=== PATIENT | female | born 1990 | race Two or more races ===

== ENCOUNTER 2016-11-24 04:30 | Emergency (ER) | payer OTHER ==
[~2016-11-24] VITALS: Ht 162.6 cm; Wt 114.3 kg
[2016-11-24] MEDS ORDERED: AMOX500C PO (04:42)
[2016-11-24] MEDS ORDERED: IBUP-1007 PO (04:42)
--- NOTE | 2016-11-24 04:42 | PHYS DOC ---
Adult General Chief Complaint Chief Complaint: SORE THROAT HPI HPI Patient is a 26 year old female who presents to the ER today complaining of a sore throat 1 day. Patient reports she's had some tactile fevers at home. Patient playing ear pain and redness from her left eye. Patient denies any other symptomatology. Patient has any nausea vomiting diarrhea cough cold runny nose. Patient reports she is tolerating by mouth's well. Patient has any altered mentation. Patient's physical exam was significant for bilateral tender submandibular lymphadenopathy. Patient has exudates in her right tonsil. Patient has no trismus. Patient is no stridor. Patient is no evidence of a workup minus. Constitutional: Denies fever or chills [] Eyes: Denies change in visual acuity, redness, or eye pain [] All other review systems are negative except as documented in the history of present illness portion. Constitutional: Well developed, well nourished, no acute distress, non-toxic appearance. [] HENT: Normocephalic, atraumatic, bilateral external ears normal, oropharynx moist, no oral exudates, nose normal. [] Eyes: PERRLA, EOMI, conjunctiva normal, no discharge. [] Neck: Normal range of motion, no tenderness, supple, no stridor. [] Cardiovascular:Heart rate regular rhythm, Lungs & Thorax: Bilateral breath sounds clear to auscultation [] Abdomen: Bowel sounds normal, soft, no tenderness, no masses, no pulsatile masses. [] Skin: Warm, dry, no erythema, no rash. [] Back: No tenderness, no CVA tenderness. [] Extremities: No tenderness, no cyanosis, no clubbing, ROM intact, no edema. [] Neurologic: Alert and oriented X 3, normal motor function, normal sensory function, no focal deficits noted. [] Psychologic: Affect normal, judgement normal, mood normal. [] Assessment and plan This is a 26-year-old female who presents here today was strep pharyngitis. Patient was discharged home on amoxicillin and Motrin. Patient's clinically hemodynamically stable. Precautions were reviewed with the patient. Current Medications Current Medications Current Medications Medications (Trade) Dose Ordered Sig/Hilary Start Time Stop Time Status Last Admin Dose Admin Amoxicillin (Amoxil) 500 mg 1X ONCE 11/24/16 04:45 11/24/16 04:46 UNV Ibuprofen (Motrin) 600 mg 1X ONCE 11/24/16 05:00 11/24/16 05:01 UNV Allergies Allergies Allergies Coded Allergies Type Severity Reaction Last Updated Verified No Known Drug Allergies 11/24/16 No Current Patient Data Vital Signs Vital Signs Date Time Temp Pulse Resp B/P (MAP) Pulse Ox O2 Delivery O2 Flow Rate FiO2 11/24/16 04:45 98.2 74 20 99 Room Air 98.2 EKG EKG [] Radiology/Procedures Radiology/Procedures [] Course & Med Decision Making Course & Med Decision Making Pertinent Labs and Imaging studies reviewed. (See chart for details) [] Dragon Disclaimer Dragon Disclaimer This electronic medical record was generated, in whole or in part, using a voice recognition dictation system. Departure Departure Impression: Primary Impression: Strep pharyngitis Disposition: 01 HOME, SELF-CARE Condition: STABLE Referrals: DAVID MONTALVO MD (PCP) Patient Instructions: Strep Throat Scripts Ibuprofen (IBUPROFEN) 600 Mg Tablet 600 MG PO PRN Q6HRS Y for PAIN, #20 TAB Prov: CHERISE GOSS MD 11/24/16 Amoxicillin (AMOXICILLIN) 500 Mg Capsule 1 CAP PO TID, #30 CAP Prov: CHERISE GOSS MD 11/24/16 CHERISE GOSS MD Nov 24, 2016 04:42
[2016-11-24 04:45] VITALS: BP 135/64
[2016-11-24] MEDS ORDERED: IBUPROFEN 600 MG TABLET. PO ONE (05:00)
[2016-11-24] MEDS ORDERED: AMOXICILLIN 250 MG CAPSULE. PO ONE (05:00)
== END 2016-11-24 05:12 | disposition home or self-care (01) ==
LOC: ER 04:30
DX: J02.0 Streptococcal pharyngitis (principal); H57.8 Other specified disorders of eye and adnexa
CPT/HCPCS: 99283

== ENCOUNTER 2017-12-17 22:23 | Emergency (ER) | payer SELFPAY ==
[~2017-12-17] VITALS: Ht 162.6 cm; Wt 117.9 kg
[~2017-12-17 22:23] MED LIST: AMOX500C PO; IBUP-1007 PO
[2017-12-17 22:35] VITALS: BP 140/70
[2017-12-17] MEDS ORDERED: LIDOCAINE 1%/EPI 1:100,000 20 ML VIAL. INJ ONE (23:00)
--- NOTE | 2017-12-18 00:29 | PHYS DOC ---
Past Medical History Past Medical History: No Pertinent History Past Surgical History: Cholecystectomy Additional Past Surgical Histo: D&C Alcohol Use: Occasionally Drug Use: None Adult General Chief Complaint Chief Complaint: LACERATION/AVULSION HPI HPI 27-year-old female presents with report of laceration to left forearm after hitting a door that had a pain of glass in it. Reports the glass broke and ended up cutting her. Patient does report last tetanus shot within the last 5 years. Denies other injury. Review of Systems Review of Systems Constitutional: Denies fever or chills [] Integument: Reports laceration to left forearm Neurologic: Denies headache, focal weakness or sensory changes [] Complete systems were reviewed and found to be within normal limits, except as documented in this note. Current Medications Current Medications Current Medications Medications (Trade) Dose Ordered Sig/Hilary Start Time Stop Time Status Last Admin Dose Admin Lidocaine/ Epinephrine (LIDOCAINE 1%-EPI 1:100,000 Multi-Dose) 20 ml 1X ONCE 12/17/17 23:00 12/17/17 23:01 DC 12/17/17 22:56 20 ML Neomycin/ Polymyxin/ Bacitracin (Triple Antibiotic Ointment) 1 pkt 1X ONCE 12/18/17 01:00 12/18/17 01:00 DC 12/18/17 00:57 1 PKT Allergies Allergies Allergies Coded Allergies Type Severity Reaction Last Updated Verified No Known Drug Allergies 11/24/16 No Physical Exam Physical Exam Constitutional: Well developed, well nourished, no acute distress, non-toxic appearance. [] HENT: Normocephalic, atraumatic, Neck: Normal range of motion, no tenderness, supple, no stridor. [] Cardiovascular: Radial pulses +2, cap refill less than 2 seconds Lungs & Thorax: No respiratory distress, atraumatic Skin: Warm, dry, no erythema, no rash. 4 lacerations to left forearm as below Extremities: No tenderness, ROM intact, flexion and extension of hand and fingers normal, 4 separate lacerations between 1 cm- 5 cm noted to left forearm Neurologic: Alert and oriented X 3, normal motor function, normal sensory function, no focal deficits noted. [] Psychologic: Affect normal, judgement normal, mood normal. [] Current Patient Data Vital Signs Vital Signs Date Time Temp Pulse Resp B/P (MAP) Pulse Ox O2 Delivery O2 Flow Rate FiO2 8/17/18 22:35 98.9 98 20 140/70 (93) 98 Room Air 98.9 EKG EKG [] Radiology/Procedures Radiology/Procedures [] Course & Med Decision Making Course & Med Decision Making Patient presents with report of laceration to left forearm after striking door with a pane of glass in it. No foreign body appreciated. Patient with full range of motion. Patient reports tetanus up-to-date. Laceration cleaned, irrigated, repaired, and dressed. X-ray without notation of retained foreign body. Patient stable for discharge with outpatient follow-up with PCP. Discussed findings and plan with patient, who acknowledges understanding and agreement. Dragon Disclaimer Dragon Disclaimer This electronic medical record was generated, in whole or in part, using a voice recognition dictation system. Departure Departure Impression: Primary Impression: Forearm laceration Disposition: 01 HOME, SELF-CARE Condition: STABLE Referrals: DAVID MONTALVO MD (PCP) Patient Instructions: Laceration Care, Adult, [id number] Additional Instructions: Do not soak your wound. You may shower. Clean wound daily with soap and water. Change dressing 2 times daily. Use over the counter antibiotic ointment with each dressing change. Sutures need to be removed in 7-10 days. Present to your family doctor or local urgent care for removal. You may also present to the ED but it will be an additional visit/charge. After suture removal you may use Vitamin E ointment to soften the wound and prevent scarring. Laceration/Wound Repair Laceration/Wound Repair : Wound Location: upper extremity Wound's Depth, Shape: superficial, linear Wound Explored: no foreign body removed Irrigated w/ Saline (ccs): 200 Betadine Prep?: No Anesthesia: Lidocaine w/ Epi (1%) Wound Debrided: minimal Wound Repaired With: sutures Suture Size/Type: 4:0 (nylon) Layer Closure?: No Sterile Dressing Applied?: Yes Splint Applied?: No Sling Applied?: No Progress Left forearm lacerations: 1. Medial aspect of distal forearm. 1 cm laceration repaired with 1 stitch 2. Anterior distal forearm. 2.5 cm laceration repaired with 3 stitches 3. Medial distal forearm. 3 cm laceration repaired with 6 stitches 4. Posterior distal forearm. 3 cm laceration repaired with 5 stitches Problem Qualifiers Primary Impression: Forearm laceration Encounter type: initial encounter Laterality: left Qualified Codes: S51.812A - Laceration without foreign body of left forearm, initial encounter ABNER QUEVEDO DO Dec 18, 2017 00:29
[2017-12-18] MEDS ORDERED: NEOMY/BACITR/POLYMYXIN OINT PACKET. TP ONE (01:00)
--- NOTE | 2017-12-18 07:47 | RAD ---
Indication: Left forearm laceration from glass. Evaluate for foreign body TECHNIQUE: 2 views of the left forearm COMPARISON: None FINDINGS: No acute fracture or dislocation. No radiopaque foreign body. Laceration is seen in the superficial soft tissue of the ventral aspect of the distal forearm. IMPRESSION: As above. Electronically signed by: Daniel Pantoja DO (12/18/2017 7:43 AM) [facility]
== END 2017-12-18 00:58 | disposition home or self-care (01) ==
LOC: ER 22:23
DX: S51.812A Laceration without foreign body of left forearm, initial encounter (principal); Z90.49 Acquired absence of other specified parts of digestive tract; W25.XXXA Contact with sharp glass, initial encounter; Y93.89 Activity, other specified; Y92.89 Other specified places as the place of occurrence of the external cause; Y99.8 Other external cause status
CPT/HCPCS: 12004; 73090; 99284; J3490

== ENCOUNTER 2018-07-19 16:05 | Emergency (ER) | payer BC ==
[~2018-07-19] VITALS: Ht 162.6 cm; Wt 117.9 kg
[2018-07-19] MEDS ORDERED: ACETAMINOPHEN 500 MG TABLET PO ONE (16:45)
[2018-07-19] MEDS ORDERED: ONDANSETRON ODT 4 MG TAB.RAPDIS. PO ONE (16:45)
--- NOTE | 2018-07-19 16:45 | PHYS DOC ---
Past Medical History Past Medical History: Anxiety, Depression Past Surgical History: Cholecystectomy Additional Past Surgical Histo: D&C Alcohol Use: None Drug Use: None Adult General Chief Complaint Chief Complaint: FLU SYMPTOM HPI HPI Patient is a 27 year old female with history of anxiety and depression who presents today complaining of a 7 out of 10 generalize headache, cough, and subjective fevers, symptoms began 3 days ago. Also complaining of vomiting 3 days and diarrhea all day today. Also complaining of generalized 7 out of 10 abdominal pain describes as cramping. Denies any chance she is . Denies any hematemesis or melena. Review of Systems Review of Systems Constitutional: Reports fevers Eyes: Denies change in visual acuity, redness, or eye pain [] HENT: Denies nasal congestion or sore throat [] Respiratory: Denies cough or shortness of breath [] Cardiovascular: No additional information not addressed in HPI [] GI: Reports generalized abdominal pain, nausea vomiting and diarrhea, denies any hematemesis : Denies dysuria or hematuria [] Musculoskeletal: Denies back pain or joint pain [] Integument: Denies rash or skin lesions [] Neurologic: Reports headache, denies, focal weakness or sensory changes [] All other systems were reviewed and found to be within normal limits, except as documented in this note. Current Medications Current Medications Current Medications Medications (Trade) Dose Ordered Sig/Hilary Start Time Stop Time Status Last Admin Dose Admin Acetaminophen (Tylenol) 1,000 mg 1X ONCE 07/19/18 16:45 07/19/18 16:46 DC 07/19/18 16:48 1,000 MG Ondansetron HCl (Zofran Odt) 4 mg 1X ONCE 07/19/18 16:45 07/19/18 16:46 DC 07/19/18 16:48 4 MG Allergies Allergies Allergies Coded Allergies Type Severity Reaction Last Updated Verified No Known Drug Allergies 11/24/16 No Physical Exam Physical Exam Constitutional: Well developed, well nourished, no acute distress, non-toxic appearance. [] HENT: Normocephalic, atraumatic, bilateral external ears normal, oropharynx moist, no oral exudates, nose normal. [] Eyes: PERRLA, EOMI, conjunctiva normal, no discharge. [] Neck: Normal range of motion, no tenderness, supple, no stridor. [] Cardiovascular:Heart rate regular rhythm, no murmur [] Lungs & Thorax: Bilateral breath sounds clear to auscultation [] Abdomen: Bowel sounds normal, soft, no tenderness, no masses, no pulsatile masses. [] Skin: Warm, dry, no erythema, no rash. [] Back: No tenderness, no CVA tenderness. [] Extremities: No tenderness, no cyanosis, no clubbing, ROM intact, no edema. [] Neurologic: Alert and oriented X 3, normal motor function, normal sensory function, no focal deficits noted. [] Psychologic: Affect normal, judgement normal, mood normal. [] Current Patient Data Vital Signs Vital Signs Date Time Temp Pulse Resp B/P (MAP) Pulse Ox O2 Delivery O2 Flow Rate FiO2 07/19/18 16:10 98.7 78 18 122/62 (82) 96 Room Air 98.7 Lab Values Laboratory Tests Test 07/19/18 16:20 Influenza Type A Antigen Negative (NEGATIVE) Influenza Type B Antigen Negative (NEGATIVE) EKG EKG [] Radiology/Procedures Radiology/Procedures [] Course & Med Decision Making Course & Med Decision Making Pertinent Labs and Imaging studies reviewed. (See chart for details) This is a 27-year-old female patient presenting to the ED today with complaints of a headache, cough, fever, nausea or vomiting, symptoms for 3 days, diarrhea all day today. Negative for influenza A or B. Requested urine from patient, patient states she only had 1 drop.of urine and is not willing to give us any more urine. She was discharged with Zofran. Instructed to take Tylenol or Motrin for pain. Over- the-counter medications recommended for her diarrhea. Dragon Disclaimer Dragon Disclaimer This electronic medical record was generated, in whole or in part, using a voice recognition dictation system. Departure Departure Impression: Primary Impression: Vomiting and diarrhea Additional Impressions: Headache Fever Disposition: 01 HOME, SELF-CARE Condition: STABLE Referrals: DAVID MONTALVO MD (PCP) Follow up in one week Patient Instructions: Nausea and Vomiting Additional Instructions: You were evaluated in the emergency room for diarrhea, vomiting, headache, fevers, this symptoms could be viral. You can take [id number] antidiarrhea medications like Imodium as needed. Push fluids. Maintain good hand hygiene. Follow-up with your doctor in 1-2 weeks as needed. Scripts Loperamide HCl (Imodium A-D) 2 Mg Capsule 2 MG PO Q8HRS PRN for DIARRHEA, #10 CAP Prov: MO MOLINA APRN 07/19/18 Ondansetron (ONDANSETRON ODT) 4 Mg Tab.rapdis 1 TAB PO PRN Q6-8HRS, #16 TAB Prov: MO MOLINA APRN 07/19/18 Problem Qualifiers Additional Impressions: Headache Headache type: unspecified Headache chronicity pattern: unspecified pattern Intractability: not intractable Qualified Codes: R51 - Headache Fever Fever type: unspecified Qualified Codes: R50.9 - Fever, unspecified MO MOLINA APRN Jul 19, 2018 16:45
[2018-07-19 17:08] LABS: INFLUENZA A PATIENT NEGATIVE (NEGATIVE); INFLUENZA B PATIENT NEGATIVE (NEGATIVE)
[2018-07-19] MEDS ORDERED: ONDA4TAB12 PO (17:47)
[2018-07-19] MEDS ORDERED: LOPE2CAP88 PO (17:47)
[2018-07-19 18:13] VITALS: BP 142/80
== END 2018-07-19 18:13 | disposition home or self-care (01) ==
LOC: ER 16:05
DX: R19.7 Diarrhea, unspecified (principal); R11.2 Nausea with vomiting, unspecified; R51 Headache; R05 Cough; R50.9 Fever, unspecified; R10.84 Generalized abdominal pain; F41.9 Anxiety disorder, unspecified; F32.9 Major depressive disorder, single episode, unspecified; Z90.49 Acquired absence of other specified parts of digestive tract
CPT/HCPCS: 87804; 99283; Q0162

== ENCOUNTER 2019-01-05 20:41 | Emergency (ER) | payer BC ==
[~2019-01-05] VITALS: Ht 160 cm; Wt 122.5 kg
[~2019-01-05 20:41] MED LIST changes: +LOPE-101 PO; +ONDA4TAB12 PO
[2019-01-05 21:19] VITALS: BP 129/73
[2019-01-05] MEDS ORDERED: HYDR-2761 PO (21:34)
[2019-01-05] MEDS ORDERED: IBUP-1007 PO (21:34)
[2019-01-05] MEDS ORDERED: METH4TAB2 PO (21:34)
--- NOTE | 2019-01-05 21:35 | PHYS DOC ---
Past Medical History Past Medical History: Anxiety, Depression (GISSELLE GARCIA APRN) Past Surgical History: Cholecystectomy Additional Past Surgical Histo: D&C (GISSELLE GARCIA APRN) Alcohol Use: None Drug Use: None (GISSELLE GARCIA APRN) Adult General Chief Complaint Chief Complaint: LOWER EXT PAIN HPI HPI Patient is a 28 year old female who presents with right lateral thigh sharp shooting pains and tingling for the last month. Patient denies injury. Patient states the pain is more so when she is laying down. Patient states when she is walking there is less pain. Patient states that it is tender on that side it is hard for her to roll over on that side because it is painful. Patient currently rates her pain a 7 out of 10. Patient states she she's been using icy hot. (GISSELLE GARCIA APRN) Review of Systems Review of Systems Constitutional: Denies fever or chills [] Musculoskeletal: Right lateral thigh pain and tingling. Denies back pain or joint pain [] Integument: Denies rash or skin lesions [] Neurologic: Tingling and numbness to right lateral thigh. Denies headache, focal weakness or sensory changes [] All other systems were reviewed and found to be within normal limits, except as documented in this note. (GISSELLE GARCIA APRN) Allergies Allergies Allergies Coded Allergies Type Severity Reaction Last Updated Verified No Known Drug Allergies 11/24/16 No (ABNER QUEVEDO DO) Physical Exam Physical Exam Constitutional: Well developed, well nourished, no acute distress, non-toxic appearance. [] Skin: Warm, dry, no erythema, no rash. [] Back: No tenderness, no CVA tenderness. [] Extremities: Right lateral thigh tenderness, no cyanosis, no clubbing, ROM intact, no edema. [] Neurologic: Alert and oriented X 3, normal motor function, normal sensory function, no focal deficits noted. [] Psychologic: Affect normal, judgement normal, mood normal. [] (GISSELLE GARCIA APRN) Current Patient Data Vital Signs Vital Signs Date Time Temp Pulse Resp B/P (MAP) Pulse Ox O2 Delivery O2 Flow Rate FiO2 01/05/19 21:19 97.9 65 16 129/73 (91) 98 Room Air 97.9 (ABNER QUEVEDO DO) EKG EKG [] (GISSELLE GARCIA APRN) Radiology/Procedures Radiology/Procedures [] (GISSELLE GARCIA APRN) Course & Med Decision Making Course & Med Decision Making Patient is a 28 year old female who presents with right lateral thigh sharp shooting pains and tingling for the last month. Patient denies injury. Patient states the pain is more so when she is laying down. Patient states when she is walking there is less pain. Patient states that it is tender on that side it is hard for her to roll over on that side because it is painful. Patient currently rates her pain a 7 out of 10. Patient states she she's been using icy hot. Alert and oriented. Speaks in full clear sentences. Ambulatory with a steady gait. No extremity weakness. No extremity swelling. Pedal pulses strong and present. Skin pink warm and dry. There is no coolness of the extremity and patient denies extremity going cold. Tenderness to the right lateral thigh with palpation. Patient states her sharp shooting pains and tingling in that thigh. Patient denies any back pain or injuries. There is no bruising or trauma seen to that leg. No laxity in the joints in the affected leg. Patient history with a Medrol Dosepak, ibuprofen and hydrocodone. Patient follow-up with her primary care provider. (GISSELLE GARCIA APRN) Dragon Disclaimer Dragon Disclaimer This electronic medical record was generated, in whole or in part, using a voice recognition dictation system. (GISSELLE GARCIA APRN) Departure Departure Impression: Primary Impression: Thigh pain Additional Impression: Numbness and tingling Disposition: 01 HOME, SELF-CARE Condition: STABLE Referrals: DAVID MONTALVO MD (PCP) Patient Instructions: Sciatica Additional Instructions: Follow-up with primary care provider. Take medications with food. Scripts Ibuprofen (IBUPROFEN) 600 Mg Tablet 600 MG PO PRN Q6HRS PRN for INFLAMMATION, #20 TAB Prov: GISSELLE GARCIA APRN 01/05/19 Hydrocodone Bit/Acetaminophen (HYDROCODONE-APAP 5-325 ) 1 Tab Tablet 1 TAB PO PRN Q6HRS PRN for PAIN, #10 TAB 0 Refills Prov: GISSELLE GARCIA APRN 01/05/19 Methylprednisolone (MEDROL) 4 Mg Tab.ds.pk 1 PKG PO UD, #1 PKG Prov: GISSELLE GARCIA APRN 01/05/19 Attending Signature Attending Signature I have reviewed the PA/DIRECTOR OF [employer]'s note and plan of care. I was available for consultation as needed during the patient's visit in the emergency department. I agree with the clinical impression, plan, and disposition. (ABNER QUEVEDO DO) Problem Qualifiers Primary Impression: Thigh pain Laterality: right Qualified Codes: M79.651 - Pain in right thigh GISSELLE GARCIA APRN Jan 05, 2019 21:35 ABNER QUEVEDO DO Jan 07, 2019 06:01
== END 2019-01-05 21:39 | disposition home or self-care (01) ==
LOC: ER 20:41
DX: M79.651 Pain in right thigh (principal); R20.2 Paresthesia of skin
CPT/HCPCS: 99283